=== PATIENT | female | born 1980 | race Caucasian/White ===

== ENCOUNTER 2017-09-16 09:54 | Inpatient (IN) | payer OTHER ==
[2017-09-16 10:51] VITALS: BMI 21.9
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
[2017-09-16] MEDS ORDERED: hydrOXYzine PAMOATE 50 MG CAPSULE (FP) PO PRN (11:47)
[2017-09-16] MEDS ORDERED: guaiFENesin/D-METHORPHAN HB 10 ML UNIT-DOSE CUPS PO PRN (11:47)
[2017-09-16] MEDS ORDERED: diazePAM 5 MG TABLET PO PRN (11:47)
[2017-09-16] MEDS ORDERED: MAGNESIUM HYDROX 2400MG/30ML ORAL SUSPENSION 30 ML CUP PO PRN (11:47)
[2017-09-16] MEDS ORDERED: IBUPROFEN 400 MG TABLET (FP) PO PRN (11:47)
[2017-09-16] MEDS ORDERED: MAG HYDROX/AL HYDROX/SIMETH 30 ML UNIT-DOSE CUP PO PRN (11:47)
[2017-09-16] MEDS ORDERED: ACETAMINOPHEN 325 MG TABLET (FP) PO PRN (11:47)
[2017-09-16] MEDS ORDERED: MENTHOL/PHENOL 1 EACH UD MM PRN (11:47)
[2017-09-16] MEDS ORDERED: NICOTINE POLACRILEX 4 MG GUM BUC PRN (11:47)
[2017-09-16] MEDS ORDERED: LOPERAMIDE HCL 2 MG CAPSULE PO PRN (11:47)
[2017-09-16] MEDS ORDERED: P-EPHED 60MG/TRIPROLIDI 2.5MG TABLET PO PRN (11:47)
[2017-09-16] MEDS ORDERED: MAGNESIUM CITRATE 300 ML BOTTLE PO PRN (11:47)
[2017-09-16] MEDS ORDERED: diazePAM 5 MG TABLET PO ONE (12:07)
[2017-09-16] MEDS ORDERED: METHADONE HCL 10 MG TABLET PO ONE (12:25)
--- NOTE | 2017-09-16 13:31 | CONSULT ---
[facility] Psychiatric Consult - Data Date of interview: 09/16/17 Admission source: [facility] Identifying data: [facility] 37 [facility] history intoxicated with: Methadone, Cocaine, Xanax anmd Nicotine Substance Abuse History: - Substances Abused. Alprazolam (Xanax). Route: Oral. Frequency: Daily. Amount used: 6mg. Age of first use: 17. Date of Last Use: 09/15/17. Crack. Route: Smoking. Frequency: Daily. Amount used : $500. Age of first use: 17. Date of Last Use: 09/15/17. Heroin. Route: Injection. Frequency: Daily. Amount used: 20 bags. Age of first use: 17. Date of Last Use: 09/15/17. fentanyl. Route: Injection. Frequency: Daily. Amount used: 2 bags. Age of first use: 35. Date of Last Use: 09/15/17 Medical History: MMTP 65 mg per day Psychiatric History: Patient reports history of depression and anxiety, reports no medications taking prior to admission Physical/Sexual Abuse/Trauma History: Denies Additional Comment: Observation. Detox Unit Care Protocol Mental Status Exam - Mental Status Exam Alert and Oriented to: Person Cognitive Function: Fair Mood: Sad Affect: Flat Patient Behavior: Sedated Speech Pattern: Delayed Voice Loudness: Moderately Soft/Quiet Thought Process: Circumstantial Thought Disorder: Being Controlled Hallucinations: Denies Suicidal Ideation: Denies Homicidal Ideation: Denies Insight/Judgement: Fair Sleep: Difficulty falling asleep Appetite: Weight loss Muscle strength/Tone: Moderate Hypertonicity Gait/Station: Deferred Additional Comments: Observation. Detox Unit Care Protocol Psychiatric Findings - Problem List ([place] 1, 2,3) (1) Cocaine dependence Current Visit: Yes Status: Chronic Qualifiers: Substance use status: uncomplicated Qualified Code(s): F14.20 - Cocaine dependence, uncomplicated (2) Methadone maintenance therapy patient Current Visit: Yes Status: Chronic Comment: pt will be build up to 65mg start dose with 30mg as per her mmtp (3) Nicotine dependence Current Visit: Yes Status: Chronic Qualifiers: Nicotine product type: cigarettes Substance use status: uncomplicated Qualified Code(s): F17.210 - Nicotine dependence, cigarettes, uncomplicated (4) Uncomplicated sedative, hypnotic or anxiolytic withdrawal Current Visit: Yes Status: Chronic (5) Cannabis dependence Current Visit: No Status: Acute (6) Opioid dependence with withdrawal Current Visit: No Status: Acute (7) Substance induced mood disorder Current Visit: No Status: Acute (8) Substance-induced sleep disorder Current Visit: No Status: Acute - Initial Treatment Plan Initial Treatment Plan: Observation. Detox Unit Care Protocol
[2017-09-16] MEDS ORDERED: diazePAM 5 MG TABLET PO SCH (14:00)
[2017-09-16 14:10] VITALS: BP 146/94; PULSE 84; TEMP 97.7
[2017-09-16] MEDS ORDERED: CYCLOBENZAPRINE HCL 10 MG TABLET (FP) PO PRN (14:47)
[2017-09-16] MEDS ORDERED: IBUPROFEN 600 MG TABLET (FP) PO PRN (14:48)
[2017-09-16] MEDS ORDERED: cloNIDine HCL 0.1 MG TABLET PO ONE (15:30)
[2017-09-16] MEDS ORDERED: TRIMETHOBENZAMIDE HCL 200MG/2ML INJ IM ONE (18:00)
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
[2017-09-16] MEDS ORDERED: THIAMINE HCL 100 MG TABLET (FP) PO SCH (22:00)
[2017-09-17] MEDS ORDERED: METHADONE HCL 40 MG DISPERSABLE TABLET PO ONE (06:00)
[2017-09-17] MEDS ORDERED: PRENATAL VITAMINS W/ FOLIC ACID TABLET (FP) PO SCH (10:00)
[2017-09-17] MEDS ORDERED: NICOTINE 21 MG/24 HOURS TOPICAL PATCH TD SCH (10:00)
[2017-09-18] MEDS ORDERED: diazePAM 5 MG TABLET PO SCH (10:00)
--- NOTE | 2017-09-18 10:10 | EKG ---
Test Reason : Blood Pressure : / mmHG Vent. Rate : 079 BPM Atrial Rate : 079 BPM P-R Int : 114 ms QRS Dur : 078 ms QT Int : 380 ms P-R-T Axes : -09 076 063 degrees QTc Int : 435 ms NORMAL SINUS RHYTHM NORMAL ECG NO PREVIOUS ECGS AVAILABLE Confirmed by TIAGO FLOWERS, DANA ([id number]) on 09/18/2017 10:09:38 AM Referred By: Confirmed By:DANA ORDOÑEZ MD
--- NOTE | 2017-09-18 11:05 | PN ---
[facility] Progress Note Note: Case discussed with Heather Aguilar after even, patient was assessed by MANAGER MECHANICAL MAINTENANCE at time of event prior to discharge and found to be medically stable. Vital Signs (72 hours) 09/16/17 09/16/17 09/16/17 06:35 10:38 14:09 Temperature 95.7 F L 99.9 F H 97.7 F Pulse Rate 80 110 H 84 Respiratory 18 18 18 Rate Blood Pressure 160/93 107/80 146/94
[2017-09-20] MEDS ORDERED: diazePAM 5 MG TABLET PO SCH (10:00)
== END 2017-09-16 23:30 | disposition home or self-care (01) | DRG 773 ==
LOC: YASAS 09:54 → Y6N 11:53 → UNDOADMIN 11:53 → UNDODISIN 21:15
PROVIDERS: ADMIT Internal Medicine; ATTEND Internal Medicine
PROC: HZ2ZZZZ Detoxification Services for Substance Abuse Treatment (ICD-10-PCS; principal; 2017-09-16)
DX: F11.23 Opioid dependence with withdrawal (principal); F13.230 Sedative, hypnotic or anxiolytic dependence with withdrawal, uncomplicated; F14.20 Cocaine dependence, uncomplicated; F12.20 Cannabis dependence, uncomplicated; F17.210 Nicotine dependence, cigarettes, uncomplicated; F19.24 Other psychoactive substance dependence with psychoactive substance-induced mood disorder; F19.282 Other psychoactive substance dependence with psychoactive substance-induced sleep disorder
CPT/HCPCS: 93005; 93010